=== PATIENT | male | born 1995 | race Hispanic/Latino ===

== ENCOUNTER 2018-10-21 18:11 | Emergency (ER) | payer OTHER ==
[~2018-10-21] VITALS: Ht 210.8 cm; Wt 98.0 kg
[~2018-10-21 18:11] MED LIST: BACTRIM DS TAB1 EACH PO; NAPROXEN500 MG PO
--- OUTSIDE RECORDS SUMMARY | 2018-10-21 18:14 | XMS REPORT ---
Author [facility] Address Unknown Phone Unavailable Care Team Providers Care Tubing Assembler Name Role Phone Unavailable Unavailable Payers Payer Name Policy Type Policy Number Effective Date Expiration Date Problems This patient has no known problems. Allergies, Adverse Reactions, Alerts Allergy Name Allergy Type Status Severity Reaction(s) Onset Date Inactive Date Treating Clinician Comments No Known Allergies DA Active U 2018-03-19 00:00:00 No Known Allergies DA Active U 2014-12-21 00:00:00 Medications This patient has no known medications. Results Test Description Test Time Test Comments Text Results Atomic Results Result Comments - XR CHEST 1 V 2018-10-17 16:53:00 Name: MICHAEL MYERS [facility] : 1995 Age/S:22 /M [address] [facility] Unit#:[id number] Loc: [place] [address] Phys: Donald Del Real MD Dis Date: PHONE #: [phone] Status: REG ER FAX #: [phone] Exam Date: 10/17/2018 Reason: cp EXAMS: CPT CODE: [id number] XR CHEST 1 V 10015 REASON FOR EXAM: cp EXAM ORDER DATE: 10/17/2018 3:46 PM Ordering MTod: Donald Del Real MD PROCEDURE: - XR CHEST 1 V COMPARISON: 10/12/2018 FINDINGS: Portable AP frontal view of the chest obtained at 4:43 PM shows clear lungs without evidence of consolidation. There is no evidence of effusion. The heart size is within normal limits. Pulmonary vasculatures are unremarkable. IMPRESSION: No active disease. at 1653 Reported and signed by: Vincent Andrews M.D. CC: Donald Del Real MD Technologist: MARIO KNIGHT, RT(R),CT Trnscrpt Data: 10/17/2018 (0513) [email or web address] Orig Print D/T: S: 10/17/2018 (6495) PAGE 1 Signed Report D-DIMER 2018-10-17 16:21:00 D-DIMER (test code=DDIMER) < 100 ng/ml < 600 COMPREHENSIVE METABOLIC [id number] 16:21:00* Test Item Value Reference Range Comments SODIUM (test code=NA) 141 mmol/L 135-148 POTASSIUM (test code=K) 4.1 mmol/L 3.5-5.1 CHLORIDE (test code=CL) 103 mmol/L 101-109 CARBON DIOXIDE (test code=CO2) 25.9 mmol/L 21-32 ANION GAP (test code=GAP) 16 mmol/L 10-20 GLUCOSE (test code=GLU) 94 mg/dL 74-106 BLOOD UREA NITROGEN (test code=BUN) 13 mg/dL 3-21 CREATININE (test code=CREAT) 0.80 mg/dL 0.55-1.3 BUN/CREATININE RATIO (test code=BUN/CREA) 16.3 10-20 TOTAL PROTEIN (test code=PROT) 7.9 g/dL 6.5-8.4 ALBUMIN (test code=ALB) 4.5 g/dL 3.4-4.8 GLOBULIN (test code=GLOB) 3.4 G/DL 1-10 ALBUMIN/GLOBULIN RATIO (test code=A/G) 1.3 RATIO 0.75-1.50 CALCIUM (test code=CA) 9.3 mg/dL 8.4-10.2 BILIRUBIN TOTAL (test code=BILT) 0.50 mg/dL 0.0-1.0 SGOT/AST (test code=AST) 13 U/L 6-32 SGPT/ALT (test code=ALT) 32 U/L 12-78 Note: Change in REFERENCE RANGE due to new reagent method. ALKALINE PHOSPHATASE TOTAL (test code=ALKP) 78 U/L 38-126 [id number] 16:21:00* Test Item Value Reference Range Comments TROPONIN-I (test code=TROPI) <0.015 ng/mL 0.00-0.056 CBC W/AUTO [id number] 16:04:00* Test Item Value Reference Range Comments WHITE BLOOD CELL (test code=WBC) 8.8 K/mm3 4.5-12.5 RED BLOOD CELL (test code=RBC) 5.45 mill/mm3 4.0-5.8 HEMOGLOBIN (test code=HGB) 15.5 gram/dL 13.0-17.5 HEMATOCRIT (test code=HCT) 44.0 % 42.0-52.0 MEAN CELL VOLUME (test code=MCV) 80.7 fL 80-98 MEAN CELL HGB (test code=MCH) 28.4 picogram 27.0-33.0 MEAN CELL HGB CONCETRATION (test code=MCHC) 35.2 gram/dL 33.0-36.0 RED CELL DISTRIBUTION WIDTH (test code=RDW) 12.5 % 11.6-16.2 RED CELL DISTRIBUTION WIDTH SD (test code=RDW-SD) 35.8 fL 39.2-49.5 PLATELET COUNT (test code=PLT) 222 K/mm3 150-450 MEAN PLATELET VOLUME (test code=MPV) 10.5 fL 6.7-11.0 NEUTROPHIL % (test code=NT%) 62.5 % 39.0-69.0 LYMPHOCYTE % (test code=LY%) 29.6 % 25.0-55.0 MONOCYTE % (test code=MO%) 5.9 % 0.0-10.0 EOSINOPHIL % (test code=EO%) 1.8 % 0.0-5.0 BASOPHIL % (test code=BA%) 0.2 % 0.0-1.0 NEUTROPHIL # (test code=NT#) 5.52 K/mm3 1.8-7.7 LYMPHOCYTE # (test code=LY#) 2.61 K/mm3 1.0-5.0 MONOCYTE # (test code=MO#) 0.52 K/mm3 0-0.8 EOSINOPHIL # (test code=EO#) 0.16 K/mm3 0.0-0.5 BASOPHIL # (test code=BA#) 0.02 K/mm3 0.0-0.2 MANUAL DIFF REQUIRED (test code=MDIFF) NO URINALYSIS [id number] 21:40:00* Test Item Value Reference Range Comments UA COLOR (test code=COLU) YELLOW YELLOW UA APPEARANCE (test code=APPU) SLIGHT HAZY CLEAR UA GLUCOSE DIPSTICK (test code=DGLUU) norm mg/dL NEGATIVE UA BILIRUBIN DIPSTICK (test code=BILU) NEGATIVE mg/dL NEGATIVE UA KETONE DIPSTICK (test code=KETU) neg mg/dL NEGATIVE UA SPECIFIC GRAVITY (test code=SGU) 1.015 1.001-1.035 UA BLOOD DIPSTICK (test code=DIO) 10 (Trace) Jordan/uL NEGATIVE UA PH DIPSTICK (test code=PETER) 7.0 5.0-8.0 UA PROTEIN DIPSTICK (test code=PROU) neg mg/dL Neg-15 UA UROBILINIOGEN DIPSTICK (test code=URO) 1 mg/dL 0.0-0.2 UA NITRITE DIPSTICK (test code=MANASA) NEGATIVE NEGATIVE UA LEUKOCYTE ESTERASE DIPSTICK (test code=LEUU) neg uL NEGATIVE UA WBC (test code=WBCU) 0-5 per HPF 0-5 IN SOME URINARY TRACT INFECTIONS THERE MAY NOT BE ENOUGHWBCs IN THE URINE TO TRIGGER AN AUTOMATIC (REFLEX) URINECULTURE. A SEPERATE ORDER FOR URINE CULTURE IS RECOMMENDEDIF THERE IS STRONG SUPPORT FOR A URINARY TRACT INFECTIONCLINICALLY. UA RBC (test code=RBCU) 0-3 per HPF 0-5 UA EPITHELIAL CELLS (test code=EPIU) Few (2-5/hpf) per HPF Few UA BACTERIA (test code=BACU) FEW per HPF NONE UA AMORPHOUS SEDIMENT (test code=AMORU) MODERATE per LPF NONE Urine Source? Clean CatchDRUGS OF ABUSE SCREEN [id number] 21:40:00* Test Item Value Reference Range Comments URN COCAINE (test code=COCAURN) NEGATIVE NEGATIVE URN CANNABINOIDS (test code=CANNABURN) NEGATIVE NEGATIVE URN AMPHETAMINE (test code=AMPHETURN) NEGATIVE NEGATIVE URN BARBITURATE (test code=BARBITURN) NEGATIVE NEGATIVE URN BENZODIAZEPINE (test code=BENZOURN) NEGATIVE NEGATIVE URN OPIATES (test code=OPIATURN) NEGATIVE NEGATIVE URN PHENCYCLIDINE (PCP) (test code=PHENCURN) NEGATIVE NEGATIVE Urine Source? Clean CatchURINALYSIS [id number] 21:39:00* Test Item Value Reference Range Comments UA COLOR (test code=COLU) YELLOW UA APPEARANCE (test code=APPU) CLEAR UA GLUCOSE DIPSTICK (test code=DGLUU) mg/dL NEGATIVE UA BILIRUBIN DIPSTICK (test code=BILU) mg/dL NEGATIVE UA KETONE DIPSTICK (test code=KETU) mg/dL NEGATIVE UA SPECIFIC GRAVITY (test code=SGU) 1.001-1.035 UA BLOOD DIPSTICK (test code=DIO) Jordan/uL NEGATIVE UA PH DIPSTICK (test code=PETER) 5.0-8.0 UA PROTEIN DIPSTICK (test code=PROU) mg/dL Neg-15 UA UROBILINIOGEN DIPSTICK (test code=URO) mg/dL 0.0-0.2 UA NITRITE DIPSTICK (test code=MANASA) NEGATIVE UA LEUKOCYTE ESTERASE DIPSTICK (test code=LEUU) uL NEGATIVE UA WBC (test code=WBCU) per HPF 0-5 IN SOME URINARY TRACT INFECTIONS THERE MAY NOT BE ENOUGHWBCs IN THE URINE TO TRIGGER AN AUTOMATIC (REFLEX) URINECULTURE. A SEPERATE ORDER FOR URINE CULTURE IS RECOMMENDEDIF THERE IS STRONG SUPPORT FOR A URINARY TRACT INFECTIONCLINICALLY. UA RBC (test code=RBCU) per HPF 0-5 UA EPITHELIAL CELLS (test code=EPIU) per HPF Few UA BACTERIA (test code=BACU) per HPF NONE UA AMORPHOUS SEDIMENT (test code=AMORU) per LPF NONE Urine Source? Clean CatchDRUGS OF ABUSE SCREEN [id number] 21:39:00* Test Item Value Reference Range Comments URN COCAINE (test code=COCAURN) NEGATIVE NEGATIVE URN CANNABINOIDS (test code=CANNABURN) NEGATIVE NEGATIVE URN AMPHETAMINE (test code=AMPHETURN) NEGATIVE NEGATIVE URN BARBITURATE (test code=BARBITURN) NEGATIVE NEGATIVE URN BENZODIAZEPINE (test code=BENZOURN) NEGATIVE NEGATIVE URN OPIATES (test code=OPIATURN) NEGATIVE NEGATIVE URN PHENCYCLIDINE (PCP) (test code=PHENCURN) NEGATIVE NEGATIVE Urine Source? Clean Catch- XR CHEST 1 [id number] 21:08:00 [facility] : 1995 Age/S:22 /M [address] [facility] Unit#:[id number] Loc: [place] [address] Phys: Marlene Caraballo MD Dis Date: PHONE #: [phone] Status: REG ER FAX #: [phone] Exam Date: 10/12/2018 Re ason: chest pain EXAMS: CPT CODE: [id number] XR CHEST 1 V 71660 HISTORY: Chest pain. C OMPARISON: March 19, 2018. No acute infiltrates, effusion or c ongestion is noted. The cardiac and mediastinal silhouette are wit hin normal limits. IMPRESSION: No acute infi ltrates, effusion or congestion. at 2108 Reported and signed by: Devyn Mcdaniels M.D. CC: Negrita Caraballo MD Technologist: Rhiannon Coronel Trnscrpt Data: 10/12/2018 (2107) [email or web address] Orig Print D/T: S: 10/12/2018 (2110) PAGE 1 Signed Report
[2018-10-21] MEDS ORDERED: SODIUM CHLORIDE 0.9% 1000ML 1,000 ML IV STA (18:29)
[2018-10-21] MEDS ORDERED: ACETAMINOPHEN 325 MG TAB PO ONE (18:30)
[2018-10-21] MEDS ORDERED: LORAZEPAM INJ 2 MG/ML VIAL IM ONE (18:30)
--- NOTE | 2018-10-21 19:26 | NUR ---
PT AND PARENT STATES THEY CANNOT BE INTO SEPARATE ROOMS; BOTH STATES MOM/DAD OR PTS MUST REMAIN WITH HIM ALWAYS. PT ELEVATES BEHAVIOR AND THEN PARENT CONTINUES TO ELEVATE BEHAVIOR. TRIED TO EXPLAIN NEED FOR PT SAFTY IN SEPARATE ROOMS AND CONTINUED TO REFUSE. MD STATES OK TO STAY TOGETHER.
--- NOTE | 2018-10-21 19:27 | Diagnostic Imaging Report ---
EXAMINATION: PA and lateral views of the chest. COMPARISON: None CLINICAL HISTORY: Shortness of breath, palpitations, fever DISCUSSION: Lungs: The lungs are well inflated and clear. There is no evidence of pneumonia or pulmonary edema. Pleura: There is no pleural effusion or pneumothorax. Heart and mediastinum: Cardiomediastinal silhouette is unremarkable. Pulmonary vasculature is normal. Bones and soft tissues: No acute bony abnormalities. Degenerative changes in the thoracic spine IMPRESSION: No acute cardiopulmonary abnormalities. Signed by: Ruddy Riojas MD on 10/21/2018 7:24 PM
--- NOTE | 2018-10-21 19:44 | NUR ---
REPORT TO JESSICA; PTS FATHER HERE
== END 2018-10-21 21:39 | disposition home or self-care (01) ==
LOC: FSED 18:11
DX: F41.1 Generalized anxiety disorder (principal); F32.0 Major depressive disorder, single episode, mild
CPT/HCPCS: 71046; 80053; 80307; 81003; 85025; 93005; 99284; J2060; J7030